=== PATIENT | female | born 1985 | race Caucasian/White ===

== ENCOUNTER 2017-12-12 09:47 | Inpatient (IN) | payer MEDICAID ==
[2017-12-12 01:25] VITALS: BMI 26.2
[2017-12-12] MEDS: Lactated Ringer's 1,000 ML IV ONE ×2 (11:40→12:40)
[2017-12-12] MEDS ORDERED: ceFAZolin 2 GM in Sodium Chloride 0.9% 100 ML IVPB ONE (11:55)
[2017-12-12] MEDS ORDERED: Oxytocin 30 UNIT 30 UNITS/500 ML BAG IV ONE ×2 (11:59→13:03)
[2017-12-12] MEDS ORDERED: ceFAZolin IV 2 gm in Dextrose 2 GM/50 ML BAG IVPB ONE ×2 (12:00→12:15)
--- NOTE | 2017-12-12 12:11 | OBADHP ---
Datetime: 12/12/2017 12:06 IP Adm Impression Other: Breech presentation Admit Comment, IP Provider: 32-year-old 001 at 34 weeks 1 day gestational age transferred from [facility] due to labor. Patient reported to be 4 [facility]. Patient denies f eeling contractions, vaginal bleeding, leakage of fluids. Patient reports good movement. Prenat al records obtained and reviewed. Past medical history denies Past surgical history denies Medications vitamins No known drug allergies Obstetrical history full-term normal spontaneous vaginal delivery 1 Social history denies tobacco, drugs, alcohol Assessment: 32-year-old at 34 weeks 1 day gestational age in active labor, breech presentation, category 1 heart tracing. Plan: Admit to labor and delivery for management Discussed with patient the need for immediate due to breech presentation and active pret erm labor. Discussed with patient the risks of prematurity as well as the risks of surgery. All patie nt questions answered. Patient consented to procedure and agrees with plan. Communication done via ventilation worker. Anesthesia notified. Neonatology notified. Pelvic Type - PN: Adequate Extremities - PN: Normal Abdomen - PN: Normal Back - PN: Normal Breast - PN: Normal Lungs - PN: Normal Heart - PN: Normal Thyroid - PN: Normal Neurologic - PN: Normal HEENT - PN: Normal General - PN: Normal FHR - Baseline A Provider: 10s-140s Membranes, Provider: Intact Contraction Comments Provider: occasional Comments, ACOG Physical Exam: presentation confirmed by bedside ultrasound Pool Provider: Negative IP Chief Complaint: Uterine contractions NICHD Variability Prov Fetus A: Moderate 6-25bpm NICHD Accel Fetus A IP Provider: [id number] FHR Category Provider Fetus A: Category I NICHD Decel Fetus A IP Provider: None Dilatation, Provider: 4-5 Effacement, Provider: 100 Station, Provider: 0 Genitourinary Exam: Normal DTRs - PN: Normal EGA AdmitDate IP: 34.1 IP Adm Impression: , intrauterine ; Active labor IP Admit Plan: Admit to unit; Initiate Section protocol
[2017-12-12 12:18] LABS: BASO % 0.2 % (0.0-2.0); EOS % 0.1 % (0.0-4.0); HEMOGLOBIN 13.1 g/dL (12.0-16.0); LYMPH # 0.9 K/uL (1.0-4.3); LYMPH % 7.5 % (20.0-40.0); MEAN CORPUSCULAR HEMOGLOBIN 24.9 pg (27.0-31.0); MEAN CORPUSCULAR HGB CONC 32.7 g/dL (33.0-37.0); MEAN PLATELET VOLUME 8.7 fl (7.2-11.7); MONO # 0.1 K/uL (0.0-0.8); MONO % 0.9 % (0.0-10.0); NEUT # 11.6 K/uL (1.8-7.0); NEUT % 91.3 % (50.0-75.0); NRBC % 0.1 % (0.0-0.0); PLATELET COUNT 239 K/uL (130-400); RBC 5.26 Mil/uL (3.80-5.20); RED CELL DISTRIBUTION WIDTH 19.6 % (11.5-14.5); WHITE BLOOD COUNT 12.7 K/uL (4.8-10.8)
[2017-12-12] MEDS ORDERED: Phenylephrine 10 mg/ml Inj ONE (12:21)
[2017-12-12] MEDS ORDERED: Morphine 1 mg/ml preservative-free Inj(Duramorph) ONE (12:23)
[2017-12-12] MEDS ORDERED: Midazolam 2 MG/2 ML VIAL ONE (12:49)
[2017-12-12] MEDS ORDERED: Ketamine 50 mg/ml Inj (10 ml) ONE (12:53)
[2017-12-12] MEDS ORDERED: OXYTOCIN/0.9 % NS 20 UNIT/1,000 ML BAG IV SCH (13:15)
[2017-12-12] MEDS ORDERED: Naloxone 0.4 mg/ml Inj (Adult) IVP PRN (13:39)
[2017-12-12] MEDS ORDERED: DiphenhydrAMINE 50 mg/ml Inj IVP PRN ×2 (13:39→17:25)
[2017-12-12] MEDS ORDERED: OXYTOCIN/0.9 % NS 20 UNIT/1,000 ML BAG IV ONE (13:54)
[2017-12-12] MEDS ORDERED: Oxycodone/Acetaminophen 5/325 mg Tab PO PRN ×2 (13:54)
[2017-12-12 13:56] LABS: BANDS 3 % (0-2); LYMPHOCYTE 9 % (20-50); MONOCYTE 1 % (0-10); NEUTROPHIL 87 % (42-75); TOTAL CELLS COUNTED 100
[2017-12-12 13:57] LABS: PLATELET ESTIMATE NORMAL (NORMAL)
[2017-12-12] MEDS ORDERED: Lactated Ringer's 1,000 ML IV SCH (14:00)
[2017-12-12 14:02] LABS: ANISOCYTOSIS SLIGHT; MICROCYTOSIS SLIGHT
[2017-12-12] MEDS ORDERED: Simethicone 80 mg Chewtab PO SCH (16:00)
[2017-12-12] MEDS: Lactated Ringer's 1,000 ML IV SCH (17:25)
[2017-12-12] MEDS: Simethicone 80 mg Chewtab PO SCH (21:53)
[2017-12-13] MEDS: Lactated Ringer's 1,000 ML IV SCH ×2 (03:05→15:10)
[2017-12-13] MEDS: Simethicone 80 mg Chewtab PO SCH ×3 (05:05→21:40)
[2017-12-13 06:19] LABS: MEAN CELL VOLUME 76.8 fl (81.0-99.0); MEAN CORPUSCULAR HEMOGLOBIN 24.8 pg (27.0-31.0); MEAN CORPUSCULAR HGB CONC 32.2 g/dL (33.0-37.0); RBC 4.42 Mil/uL (3.80-5.20); RED CELL DISTRIBUTION WIDTH 18.4 % (11.5-14.5); WHITE BLOOD COUNT 17.5 K/uL (4.8-10.8)
--- NOTE | 2017-12-13 07:30 | OBPPN ---
Datetime: 12/13/2017 07:23 PP Pain Prov: Within normal limits PP Nausea Prov: Denies PP Flatus Prov: Yes PP BM Prov: No PP Abdomen/Uterus Prov: Normal PP Lochia Prov: Normal PP Extremities Prov: Normal PP C/S Incision Prov: Normal PP Progress Prov: Normal PP Comments Phys Exam Prov: Incision w/ bandage in place PP Impression Prov: Normal progression PP Plan Prov: Continue present management PP Progress Note Prov: POD 1 s/p section for breech, doing well, breast and bottle feeding Continue current care Vital Signs Provider PP: Reviewed; Within Normal Limits
[2017-12-13] MEDS: Oxycodone/Acetaminophen 5/325 mg Tab PO PRN ×4 (08:17→20:06)
[2017-12-13] MEDS ORDERED: Multivitamin With Minerals Tab PO SCH (09:00)
--- NOTE | 2017-12-13 11:39 | OBDS ---
DELIVERY PERSONNEL Delivery Doctor: Tierra Pena MD Scrub Nurse: Shannan Norris OBT Surgical Physician Assistant: Nini Oh RN Anesthesiologist: Huyen Cueva MD Resident: Dr. Rodgers/Dr. Donald MATERNAL INFORMATION Delivery Anesthesia: Spinal Medications in Delivery: Pitocin 30 units Estimated Blood Loss (ml): 800 Placenta Cultured: No Maternal Complications: None RN Comments: 34 weeks IUP primary c/s for breech and labor. baby boy born at 12:50 Apg ars 8/9 Provider Comments: Primary low flap transverse section via Pfannenstiel incision. Patient d elivered viable male with Apgars of 8 and 9 at one and 5 minutes respectively. infant f rank breech presentation. Normal uterus, normal tubes and ovaries bilaterally. Estimated blood loss 800 mL Fluids 1000 mL lactated Ringer's Urine output 200 mL of clear urine No complications. LABOR SUMMARY EDC: 01/22/2018 00:00 No. Babies in Womb: 1 Attempted: No Labor Anesthesia: None LABOR INFORMATION Reason for Induction: Not Applicable Oxytocin: N/A Group B Beta Strep: Not Done Steroids Given: Partial Course; < 24 Hours before Delivery Reason Steroids Not Administered: Imminent Delivery MEMBRANES Membranes Rupture Method: Artificial Rupture of Membranes: 12/12/2017 12:50 Length of Rupture (hrs): 0.00 Amniotic Fluid Color: Clear Amniotic Fluid Amount: Moderate STAGES OF LABOR Stage 3 hrs: 0 Stage 3 min: 1 CSECTION DELIVERY Primary Indication: Breech Presentation Secondary Indication: Other Other Secondary Indication: labor CSection Urgency: Emergency CSection Incidence: Primary Labor: Labor Elective: Elective CSection Incision: Lower Uterine Transverse Uterine Closure: Double-layer closure BABY A INFORMATION Delivery Date/Time: 12/12/2017 12:50 Method of Delivery: Born in Route : No : N/A Forceps: N/A Vacuum Extraction: N/A Shoulder Dystocia : No SHOULDER DYSTOCIA BABY A Infant Delivery Date/Time: 12/12/2017 12:50 PRESENTATION/POSITION BABY A Presentation: Breech Breech Presentation: Orion PLACENTA INFORMATION BABY A Placenta Delivery Time : 12/12/2017 12:51 Placenta Method of Delivery: Spontaneous Placenta Status: Delivered SCORES BABY A Heart Rate 1 min: >100 bpm Resp Effort 1 min: Good Cry Reflex Irritability 1 min: Cough or Sneeze or Pulls Away Muscle Tone 1 min: Active Motion Color 1 min: Blue/Pale Resuscitation Effort 1 min: Tactile Stimulation SCORE 1 MIN: 8 Heart Rate 5 min: >100 bpm Resp Effort 5 min: Good Cry Reflex Irritability 5 min: Cough or Sneeze or Pulls Away Muscle Tone 5 min: Active Motion Color 5 min: Body [place], Extremities Blue Resuscitation Effort 5 min: Tactile Stimulation SCORE 5 MIN: 9 INFANT INFORMATION BABY A Gestational Age at Delivery: 34.0 Gestational Status: Term Outcome : Liveborn Condition : Stable Sex: Male IDENTIFICATION/MEDS BABY A ID Band Number: [id number] ID Band Location: Left Leg; Left Arm WEIGHT/LENGTH BABY A Birthweight (gms): 1910 Infant Weight (lb): 4 Infant Weight (oz): 3 CORD INFORMATION BABY A No. Cord Vessels: 3 Nuchal Cord : N/A Infant Cord pH Baby Arterial: 7.35 Cord Blood Taken: N/A Suction: Mouth ASSESSMENT BABY A Complications: None Physical Findings at Delivery: Within Normal Limits Infant Respirations: Appears Normal Home Improvement Contractor/ALS Called : Yes Infant Care By: Dr. Armando, Transferred To: NICU
[2017-12-13] MEDS: Multivitamin With Minerals Tab PO SCH (12:29)
[2017-12-14] MEDS: Simethicone 80 mg Chewtab PO SCH ×4 (03:59→21:02)
[2017-12-14] MEDS: Oxycodone/Acetaminophen 5/325 mg Tab PO PRN ×3 (03:59→19:14)
[2017-12-14] MEDS: Multivitamin With Minerals Tab PO SCH (08:48)
[2017-12-15] MEDS: Simethicone 80 mg Chewtab PO SCH ×4 (03:43→22:42)
[2017-12-15] MEDS: Multivitamin With Minerals Tab PO SCH (08:21)
--- NOTE | 2017-12-15 14:37 | OBPPN ---
Datetime: 12/15/2017 08:47 PP BM Prov: No PP C/S Incision Prov: Normal PP Progress Prov: Normal PP Plan Prov: Continue present management Datetime: 12/14/2017 09:32 PP Pain Prov: Within normal limits PP Nausea Prov: Denies PP Flatus Prov: Yes PP Breasts Prov: Normal PP Heart Prov: Normal PP Lungs Prov: Normal PP Abdomen/Uterus Prov: Normal PP Lochia Prov: Normal PP Vulva/Perineum Prov: Normal PP CVA Tenderness Prov: Normal PP Extremities Prov: Normal PP Comments Phys Exam Prov: Abd: Soft, NT, BS - present Uterus: firm Incision: Clean and dry PP Impression Prov: Normal progression PP Progress Note Prov: S/P delivery for Breech presentation, POD #2 Clinically Stable. Plan: Continue care Encourage ambulation. Vital Signs Provider PP: Reviewed
[2017-12-16] MEDS: Simethicone 80 mg Chewtab PO SCH ×2 (05:01→08:53)
--- NOTE | 2017-12-16 07:48 | OBPPN ---
Datetime: 12/15/2017 08:47 PP Progress Note Prov: S: Patient see and examined this morning at the bedside, laying comfortably o n bed, patient c/o b/l leg and feet pain when she walks. Afebrile. Abdominal pain is well controlled by medications, tolerating well PO. No BM yet but passing gas per rectum. Lochia like menses. Denies chest pain, dyspnea, n/v/chills, diarrhea or urinary symproms. VSS Gen: NAD Lungs: CTA B/L, no wheezing. CVS: RRR, S1, S2 no murmurs. Abd: ND, +BS, appropriated tenderness, fundus firm at umbilical level. Incision C/D/I. Ext: No edema, positive calf tenderness, neg Kristie sign. Neuro/psych: AAOx3, no focal deficit. A/P: 32 yo F , s/p C section. Doing well on POD 3. -OOB with caution, SCDs for DVT prophylaxis. -Encourage ambulation -Percocet 5/325 mg/ Ibuprofen 600 mg for pain prn. -Senokot 17.2 mg PO x constipation. -Duplex US LE b/l -pp H/H 11.2/34.0 -Anticipated d/c on 12/16/17 -Patient is aware and all the questions were answered YBecerra PGY-2 Attending Note: Patient was evaluated with the resident and I agree with the above assessment.
[2017-12-16] MEDS: Multivitamin With Minerals Tab PO SCH (08:52)
--- NOTE | 2017-12-16 09:28 | US ---
Date of service: 12/15/2017 PROCEDURE: Bilateral lower extremity venous duplex Doppler. HISTORY: r/o DVT COMPARISON: None available. TECHNIQUE: Bilateral common femoral, superficial femoral, popliteal and posterior tibial veins were evaluated. Flow was assessed with color Doppler, compressibility, assessment of phasic flow and augmentation response. FINDINGS: COMMON FEMORAL VEIN: Right CFV: Unremarkable. Left CFV: Unremarkable. SUPERFICIAL FEMORAL VEIN: Right SFV: Unremarkable. Left SFV: Unremarkable. POPLITEAL VEIN: Right Popliteal: Unremarkable. Left Popliteal: Unremarkable. POSTERIOR TIBIAL VEIN: Right PTV: Unremarkable. Left PTV: Unremarkable. OTHER FINDINGS: None. IMPRESSION: No evidence of deep venous thrombosis.
--- NOTE | 2017-12-16 11:48 | OBPPN ---
Datetime: 12/16/2017 09:18 PP Pain Prov: Within normal limits PP Nausea Prov: Denies PP Flatus Prov: Yes PP BM Prov: Yes PP Breasts Prov: Not Done PP Heart Prov: Normal PP Lungs Prov: Normal PP Abdomen/Uterus Prov: Normal PP Lochia Prov: Not Done PP Vulva/Perineum Prov: Not Done PP CVA Tenderness Prov: Not Done PP Extremities Prov: Normal PP C/S Incision Prov: Normal PP Progress Prov: Normal PP Impression Prov: Normal progression PP Plan Prov: Continue present management PP Progress Note Prov: S: Patient seen and examined at the bedside this morning, Pt sitting comforta onofre on bed eating breakfast. Bilateral leg and abdominal pain with ambulation improved since yesterda y with pain medications. Tolerating well PO. Patinet passing gas and had bm yesterday. Lochia like me nses. Denies headache, dizziness, chest pain, dyspnea, nausea, vomitng, fever, chills, diarrhea or ur inary symproms. VSS, Afebrile Gen: NAD Lungs: CTA B/L, no wheezing, rales, rhonchi CVS: RRR, S1, S2 WNL, no murmurs. Abd: ND, +BS, appropriated tenderness, fundus firm at umbilical level. Ext: No edema, positive calf tenderness. Neuro/psych: AAOx3, no focal deficit. A/P: 32 yo F , s/p C section. Doing well on POD 4. -OOB with caution, SCDs for DVT prophylaxis -US B/L Negative for DVTs. -Encourage ambulation -Percocet 5/325 mg/ Ibuprofen 600 mg for pain prn. -Senokot 17.2 mg PO x constipation. -pp H/H 11.2/34.0 -Anticipated d/c on today 12/16/17 -Patient is aware and all the questions were answered Jean-Pierre Biswas PGY1 Addendum by Dr. Hammond: I have evalauted the patient independently and I agree with the above Vital Signs Provider PP: Reviewed; Within Normal Limits Vital Signs Provider Details PP: Feeding pumped breast milk
--- NOTE | 2017-12-16 11:48 | OBDCSUM ---
Datetime: 12/16/2017 09:35 Discharged to, Provider: Home Follow up at, Provider: [employer] Disch Instr Activity: Normal activity; May be up to bathroom; May be up for meals; May Shower Disch Instr Diet: Regular Discharge Diagnosis, Provider: Delivery Discharge Time: 12/16/2017 10:00 Follow up in weeks, Provider: 4-6 Weeks Disch Referrals: None Disch Activity Restrictions: No sexual activity; Nothing in vagina - Thoreau, tampons, douche Contraception after Delivery: Undecided
[2017-12-16 16:49] VITALS: BP 111/63; PULSE 51; RESP 20; TEMP 98.6; O2SAT 98
--- NOTE | 2017-12-17 08:57 | OP ---
Copied To: Florentino Pena MD Attending MD: Florentino Pena MD PROCEDURE DATE: 12/12/17 PREOPERATIVE DIAGNOSIS: labor, breech presentation. POSTOPERATIVE DIAGNOSIS: labor, breech presentation. OPERATION PERFORMED: Primary low-flap transverse section via Pfannenstiel incision. SURGEON: Florentino Pena MD ASSISTANTS: Dr. Rodgers and Dr. Donald. ANESTHESIA: Spinal. ANESTHESIOLOGIST: Dr. Cueva. FINDINGS: Viable male with Apgars of 8 and 9 at 1 and 5 minutes respectively. The was in elsa breech presentation. Normal uterus and normal tubes and ovaries bilaterally. IV FLUID INTAKE: 1000 mL of lactated Ringer's. ESTIMATED BLOOD LOSS: 800 mL. URINE OUTPUT: 200 mL of clear urine. COMPLICATIONS: No complications. INDICATIONS FOR PROCEDURE: The patient was transferred from [facility] due to labor. Upon presentation, the patient was found to be 4 to 5 cm dilated. On a bedside ultrasound, the patient was found to be in elsa breech presentation. After discussion of risks, benefits, and alternatives of delivery, the patient consented for . Discussed with the patient the risks of prematurity. All the patient's questions were answered. Neonatology was present and discussed with the patient. DESCRIPTION OF PROCEDURE: The patient was taken to the operating room where spinal anesthesia was found to be adequate. The patient was prepped and draped in normal sterile fashion in the dorsal supine position with a leftward tilt. A Pfannenstiel skin incision was made with the scalpel. This was carried down through to the underlying layer of fascia with scalpel. Midline defect was made in the fascial layer with the scalpel. The fascial layer incision was then extended bilaterally sharply with curved Sharif scissors. The rectus muscles were at the midline. The peritoneum was then identified, tented up with Katelynn clamps x 2, and then entered sharply with Metzenbaum scissors. The peritoneal incision was extended superiorly and inferiorly with good visualization of the urinary bladder. Bladder blade was inserted into the abdomen. The vesicouterine peritoneum was then identified, tented up with Katelynn clamps x2, and then entered sharply with Metzenbaum scissors. The peritoneal incision was then extended bilaterally with the Metzenbaum scissors. The bladder flap was created digitally. The Robbie retractor was placed over the urinary bladder. The uterus was incised with the scalpel. The breech of the infant was delivered without complication. The lower extremities were flexed and delivered without complications. The upper extremities were flexed and delivered without complication. The head was flexed and delivered atraumatically. The cord was clamped and cut. The was handed off to the waiting pediatricians. The placenta was removed manually. The uterus was cleared of all clots and debris. The uterine incision was repaired with 0 Vicryl in a running, locked fashion. The second layer with the same suture was used to imbricate the first and to obtain excellent hemostasis. The abdomen and pelvis were irrigated with copious amounts of warm normal saline. Re-inspection of the uterine incision proved excellent hemostasis. All instruments were removed from the patient. The peritoneal layer was closed with a running stitch of 2-0 chromic. The rectus muscles were re-approximated midline with a running stitch of 2-0 chromic. The fascial layer was closed with a running stitch of 0 Vicryl. Subcutaneous tissue was closed with a running stitch of 3-0 plain and the skin was closed with Vicryl and a subcutaneous stitch. The patient tolerated the procedure well. All sponge, lap, and needle counts were correct x2. The patient was given 1 g of Ancef just prior to beginning of the procedure. There were no complications. The patient was taken to the recovery room in awake and stable condition. Florentino Pena MD
== END 2017-12-16 12:45 | disposition home or self-care (01) | DRG 651 ==
LOC: H.EROB2 09:47 → H.L&D 09:49 → H.EROB2 11:56 → H.L&D 11:57 → H.OB/GYN 17:00
PROVIDERS: ADMIT Obstetrics & Gynecology; ATTEND Obstetrics & Gynecology
PROC: 10D00Z1 Extraction of Products of Conception, Low, Open Approach (ICD-10-PCS; principal; 2017-12-12)
PROC: 4A1HXCZ Monitoring of Products of Conception, Cardiac Rate, External Approach (ICD-10-PCS; 2017-12-12)
DX: O60.14X0 Preterm labor third trimester with preterm delivery third trimester, not applicable or unspecified (principal); O32.1XX0 Maternal care for breech presentation, not applicable or unspecified; Z3A.34 34 weeks gestation of pregnancy; Z37.0 Single live birth; K59.00 Constipation, unspecified